=== PATIENT | female | born 1975 | race Caucasian/White ===

== ENCOUNTER → 2020-05-11 | Outpatient (CLI) | payer OTHER ==
[2020-05-11 09:03] LABS: BASO # 0.1 10*3/uL (0.0-0.1); BASO % 0.7 % (0.0-1.0); EOS # 0.2 10*3/uL (0.0-0.4); EOS % 2.8 % (1.0-4.0); HEMATOCRIT 40.7 % (37.0-47.0); MEAN CELL VOLUME 85.3 fl (81.0-99.0); MEAN CORPUSCULAR HGB 27.3 pg (27.0-31.0); MEAN CORPUSCULAR HGB CONC 31.9 g/dl (33.0-37.0); MEAN PLATELET VOLUME 9.9 fl (9.6-12.3); MONO # 0.7 10*3/uL (0.1-1.0); MONO % 9.7 % (3.0-9.0); NEUT # 3.9 10*3/uL (2.3-7.9); NEUT % 56.5 % (47.0-73.0); PLATELET COUNT AUTOMATED 316 10*3/uL (130-400); RED BLOOD COUNT 4.77 10*6/uL (4.10-5.10); RED CELL DISTRI WIDTH 13.2 % (0-14.5); WHITE BLOOD COUNT 6.8 10*3/uL (4.8-10.8)
[2020-05-11 09:22] LABS: ALBUMIN 3.4 gm/dl (3.1-4.5); ALKALINE PHOSPHATASE 74 U/L (45-117); BUN 13 mg/dl (7-24); CHLORIDE 108 mmol/L (98-107); CHOLESTEROL 153 mg/dL (<200); CREATININE 0.98 mg/dL (0.55-1.02); HDL CHOLESTEROL 56 mg/dl (40-60); LDL CHOLESTEROL 78 mg/dL (9-159); POTASSIUM 4.5 mmol/L (3.5-5.1); SGOT/AST 18 IU/L (3-35); SGPT/ALT 25 U/L (12-78); SODIUM 140 mmol/L (136-145); TOTAL PROTEIN 7.3 gm/dL (6.4-8.2); TRIGLYCERIDES 95 mg/dl (<150); VLDL CHOLESTEROL 19 mg/dL (6-40)
== END | disposition home or self-care (01) ==
LOC: LAB 08:28
PROVIDERS: ATTEND Nurse Practitioner Primary Care
DX: E78.5 Hyperlipidemia, unspecified (principal); Q62.7 Congenital vesico-uretero-renal reflux; Z90.09 Acquired absence of other part of head and neck

== ENCOUNTER → 2023-01-07 | Day surgery (SDC) | payer OTHER ==
[~2023-01-07] VITALS: Ht 167.6 cm; Wt 113.4 kg
[~2023-01-07] MED LIST: DAILY VALUE1 EACH PO; LISINOPRIL5 MG PO
[2023-01-07 06:30] VITALS: BP 157/75
[2023-01-07 07:55] VITALS: BP 109/63
[2023-01-07 08:08] VITALS: BP 111/63
[2023-01-07 08:25] VITALS: BP 138/85
[2023-01-07 09:10] VITALS: BP 128/85
== END ==
LOC: SDC 01-04 08:00
PROVIDERS: ATTEND Surgery
DX: Z12.11 Encounter for screening for malignant neoplasm of colon (principal); I12.9 Hypertensive chronic kidney disease with stage 1 through stage 4 chronic kidney disease, or unspecified chronic kidney disease; N18.2 Chronic kidney disease, stage 2 (mild); K57.30 Diverticulosis of large intestine without perforation or abscess without bleeding; G43.909 Migraine, unspecified, not intractable, without status migrainosus; E66.9 Obesity, unspecified; Z79.899 Other long term (current) drug therapy; Z98.891 History of uterine scar from previous surgery; Z90.89 Acquired absence of other organs; Z98.890 Other specified postprocedural states

== ENCOUNTER → 2023-01-11 | Outpatient (CLI) | payer OTHER | END | disposition home or self-care (01) | LOC: US 01:38 | PROVIDERS: ATTEND Nurse Practitioner | DX: K82.9 Disease of gallbladder, unspecified (principal) ==

== ENCOUNTER → 2023-01-28 | Outpatient (CLI) | payer OTHER | END | disposition home or self-care (01) | LOC: NM 01:17 | PROVIDERS: ATTEND Nurse Practitioner | DX: K82.8 Other specified diseases of gallbladder (principal); R93.5 Abnormal findings on diagnostic imaging of other abdominal regions, including retroperitoneum ==

== ENCOUNTER → 2023-06-16 | Outpatient (CLI) | payer OTHER | END | disposition home or self-care (01) | LOC: CT 00:23 | PROVIDERS: ATTEND Obstetrics & Gynecology Gynecologic Oncology | DX: N20.0 Calculus of kidney (principal); R19.00 Intra-abdominal and pelvic swelling, mass and lump, unspecified site; R91.1 Solitary pulmonary nodule; N85.2 Hypertrophy of uterus; N83.8 Other noninflammatory disorders of ovary, fallopian tube and broad ligament; N85.8 Other specified noninflammatory disorders of uterus ==

== ENCOUNTER → 2023-07-29 | Outpatient (CLI) | payer OTHER | END | disposition home or self-care (01) | LOC: CARD 01:26 | PROVIDERS: ATTEND Internal Medicine Medical Oncology | DX: C49.9 Malignant neoplasm of connective and soft tissue, unspecified (principal); C78.6 Secondary malignant neoplasm of retroperitoneum and peritoneum ==

== ENCOUNTER → 2023-08-09 | Outpatient (CLI) | payer OTHER ==
[~2023-08-09] MED LIST changes: +IOHEXOL 300 MG/ML 100 ML VIAL IV ONE
== END | disposition home or self-care (01) ==
LOC: CT 01:25
PROVIDERS: ATTEND Internal Medicine Medical Oncology
DX: C49.9 Malignant neoplasm of connective and soft tissue, unspecified (principal); C78.6 Secondary malignant neoplasm of retroperitoneum and peritoneum; R91.8 Other nonspecific abnormal finding of lung field; I25.10 Atherosclerotic heart disease of native coronary artery without angina pectoris; Z90.710 Acquired absence of both cervix and uterus; N20.0 Calculus of kidney

== ENCOUNTER → 2023-09-29 | Outpatient (CLI) | payer OTHER | END | disposition home or self-care (01) | LOC: CT 09-21 09:00 | PROVIDERS: ATTEND Internal Medicine Medical Oncology | DX: Z45.2 Encounter for adjustment and management of vascular access device (principal); C49.9 Malignant neoplasm of connective and soft tissue, unspecified; C78.6 Secondary malignant neoplasm of retroperitoneum and peritoneum; Z90.710 Acquired absence of both cervix and uterus; R91.1 Solitary pulmonary nodule ==

== ENCOUNTER → 2023-11-05 | Outpatient (CLI) | payer OTHER ==
[~2023-11-05] MED LIST changes: +IOHEXOL 300 MG/ML 100 ML VIAL ONE
== END | disposition home or self-care (01) ==
LOC: CT 10-30 09:00 → CARD 00:40 → CT 10:00
PROVIDERS: ATTEND Internal Medicine Medical Oncology
DX: C78.6 Secondary malignant neoplasm of retroperitoneum and peritoneum (principal); C49.9 Malignant neoplasm of connective and soft tissue, unspecified; I08.8 Other rheumatic multiple valve diseases; R91.8 Other nonspecific abnormal finding of lung field; N20.0 Calculus of kidney; Z98.82 Breast implant status

== ENCOUNTER → 2024-01-05 | Outpatient (CLI) | payer OTHER ==
[~2024-01-05] MED LIST changes: -IOHEXOL 300 MG/ML 100 ML VIAL IV ONE; -IOHEXOL 300 MG/ML 100 ML VIAL ONE
== END | disposition home or self-care (01) ==
LOC: LAB 11:17
PROVIDERS: ATTEND Urology
DX: C55 Malignant neoplasm of uterus, part unspecified (principal)

== ENCOUNTER → 2024-01-06 | Outpatient (CLI) | payer OTHER ==
[~2024-01-06] MED LIST changes: +IOHEXOL 300 MG/ML 100 ML VIAL IV ONE
== END | disposition home or self-care (01) ==
LOC: CARD 01-05 07:30 → CT 00:37
PROVIDERS: ATTEND Internal Medicine Medical Oncology
DX: C78.6 Secondary malignant neoplasm of retroperitoneum and peritoneum (principal); C49.9 Malignant neoplasm of connective and soft tissue, unspecified; R91.8 Other nonspecific abnormal finding of lung field; Z90.710 Acquired absence of both cervix and uterus; Z98.82 Breast implant status; N20.0 Calculus of kidney

== ENCOUNTER → 2024-04-24 | Outpatient (CLI) | payer OTHER | END | disposition home or self-care (01) | LOC: CT 13:00 | PROVIDERS: ATTEND Internal Medicine Medical Oncology | DX: N20.0 Calculus of kidney (principal); C49.9 Malignant neoplasm of connective and soft tissue, unspecified; C78.6 Secondary malignant neoplasm of retroperitoneum and peritoneum; R91.1 Solitary pulmonary nodule ==